=== PATIENT | male | born 1970 ===

== ENCOUNTER 2019-08-04 23:09 | Observation (INO) | payer OTHER ==
[~2019-08-04] VITALS: Ht 177.8 cm; Wt 91.3 kg
[~2019-08-04 23:09] MED LIST: ASPI81CH PO; NITR.4SL SL; OMEP20ER PO; SIMV40 PO
[2019-08-04 23:29] LABS: BASOPHILS ABSOLUTE AUTO 0.04 K/mm3 (0.00-0.23); BASOPHILS PERCENT AUTO 0 % (0-2); EOSINOPHILS ABSOLUTE AUTO 0.24 K/mm3 (0.00-0.68); EOSINOPHILS PERCENT AUTO 2 % (0-6); Hematocrit 44.9 % (37.0-53.0); Hemoglobin 14.9 g/dL (13.5-17.5); IMMATURE GRAN ABSOLUTE AUTO 0.04 K/mm3 (0.00-0.10); IMMATURE GRAN PERCENT AUTO 0 % (0-1); LYMPHOCYTES ABSOLUTE AUTO 4.92 K/mm3 (0.84-5.20); LYMPHOCYTES PERCENT AUTO 46 % (21-46); MONOCYTES ABSOLUTE AUTO 0.79 K/mm3 (0.16-1.47); MONOCYTES PERCENT AUTO 7 % (4-13); Mean Corpuscular HGB 29.7 pg (26.0-34.0); Mean Corpuscular HGB Conc 33.2 g/dL (31.5-36.5); Mean Corpuscular Volume 90 fL (80-100); Mean Platelet Volume 10.2 fL (9.1-12.4); NEUTROPHILS ABSOLUTE AUTO 4.73 K/mm3 (1.96-9.15); NEUTROPHILS PERCENT AUTO 44 % (41-73); Platelet Count 183 K/mm3 (150-400); RDW Coefficient Variation 12.3 % (11.7-14.2); RDW Standard Deviation 40.5 fL (35.1-46.3); Red Blood Cell Count 5.01 M/mm3 (4.30-5.90); White Blood Cell Count 10.76 K/mm3 (4.00-11.30)
[2019-08-04 23:48] LABS: Alanine Aminotransfer (ALT/SGP 74 U/L (12-78); Albumin, Blood 3.8 g/dL (3.4-5.0); Albumin/Globulin Ratio 0.9 (0.8-1.8); Alk Phos 57 U/L (50-136); Anion Gap 9 mmol/L (6-16); Aspartate Aminotrans (AST/SGOT 51 U/L (12-37); Bilirubin, Total 0.2 mg/dL (0.1-1.0); Blood Urea Nitrogen 16 mg/dL (8-24); Bun/Creatinine Ratio 21.2 (12.0-20.0); CO2, Blood 23 mmol/L (21-32); Calcium, Blood 8.3 mg/dL (8.5-10.1); Chloride, Blood 111 mmol/L (98-108); Creatinine, Blood 0.76 mg/dL (0.60-1.20); Globulin, Blood 4.1 g/dL (2.2-4.0); Glomerular Filtration Rate >60 (60-); Glucose, Blood 115 mg/dL (70-99); Potassium, Blood 3.7 mmol/L (3.5-5.5); Sodium, Blood 143 mmol/L (136-145); Total Protein, Blood 7.9 g/dL (6.4-8.2); Troponin I <0.015 ng/mL (0.000-0.040)
[2019-08-04 23:52] LABS: Ethanol (Alcohol), Blood, Med 399 mg/dL
[2019-08-05 00:14] LABS: Prolactin 55.7 ng/mL (2.5-17.4)
[2019-08-05 03:27] LABS: Magnesium, Blood 2.2 mg/dL (1.6-2.4)
[2019-08-05 03:29] LABS: Thyroid Stimulating Hormone 2.37 uIU/mL (0.360-4.800)
--- NOTE | 2019-08-05 09:05 | NUR ---
PT IS A&OX4 RESTING IN BED. PT DENIES ANY NAVA, CP, OR GENERAL DISCOMFORT. NO SEIZURE LIKE ACTIVITY REPORTED BY ROTARY SHEAR OPERATOR. AM CARE DONE. FAMILY REMAINS AT BEDSIDE. MRI PLANNED FOR APPROX 1 HOUR FROM NOW. MONITOR SHOWS PT TO BE SINUS ARACELI-SINUS RHYTHMN RATE HIGH 50'S-70'S. VITALS REMAIN STABLE.
--- NOTE | 2019-08-05 13:17 | NUR ---
CARE HANDOFF REPORT GIVEN TO CATHIE VILLA.
--- NOTE | 2019-08-05 14:12 | NUR ---
Assumed care from Ashlyn Hoover. Patient was getting EEG and is now done. Dr Novoa was notified and is typing in discharge instructions now. Patient denies any current needs VSS.
[2019-08-05] MEDS ORDERED: CHLO10 PO (14:35)
--- NOTE | 2019-08-05 14:58 | NUR ---
Patient was given written discharge instructions with family present, reveiwed current medications and new med and pulled LH IV intact and wrapped in coban. He was taken out in wheelchair to [facility].
== END 2019-08-05 15:06 | disposition home or self-care (01) ==
LOC: ER 23:09 → ICUW 23:10
PROVIDERS: Emergency Medicine; ADMIT Hospitalist
DX: F10.129 Alcohol abuse with intoxication, unspecified (principal); G92 Toxic encephalopathy; R56.9 Unspecified convulsions; R07.9 Chest pain, unspecified; E78.5 Hyperlipidemia, unspecified; K21.9 Gastro-esophageal reflux disease without esophagitis; Z79.82 Long term (current) use of aspirin; Z79.899 Other long term (current) drug therapy; Y90.8 Blood alcohol level of 240 mg/100 ml or more
CPT/HCPCS: 36415; 70450; 70551; 71045; 80053; 83605; 83735; 84146; 84443; 84484; 85025; 93005; 93010; 95819; 96361; 96372; 96374; 99285-25; A9270; G0378; G0480; J1650; J2405; J7030

== ENCOUNTER 2024-02-03 20:49 | Emergency (ER) | payer OTHER ==
[~2024-02-03] VITALS: Ht 172.7 cm; Wt 102.1 kg
[~2024-02-03 20:49] MED LIST changes: +CHLO10 PO
[2024-02-03] MEDS ORDERED: Diphth,Pertuss(Acell),Tet Vac 0.5 ML VIAL IM ONE ×2 (21:15→22:50)
[2024-02-03 22:29] VITALS: BP 144/84
[2024-02-03] MEDS ORDERED: HYDROcodone 5-APAP 325 TAB PO ONE (23:10)
== END 2024-02-04 00:35 | disposition home or self-care (01) ==
LOC: ER 20:49
DX: S01.112A Laceration without foreign body of left eyelid and periocular area, initial encounter (principal); M25.562 Pain in left knee; Y04.8XXA Assault by other bodily force, initial encounter; Z79.899 Other long term (current) drug therapy; Z79.82 Long term (current) use of aspirin; I10 Essential (primary) hypertension; E78.5 Hyperlipidemia, unspecified; K21.9 Gastro-esophageal reflux disease without esophagitis
CPT/HCPCS: 73562-LT; 90715; A9270

== ENCOUNTER → 2025-02-06 | Outpatient (CLI) | payer OTHER ==
[2025-02-06 17:14] LABS: BASOPHILS ABSOLUTE AUTO 0.02 K/mm3 (0.00-0.23); BASOPHILS PERCENT AUTO 0 % (0-2); EOSINOPHILS ABSOLUTE AUTO 0.23 K/mm3 (0.00-0.68); EOSINOPHILS PERCENT AUTO 4 % (0-6); Hematocrit 46.0 % (37.0-53.0); Hemoglobin 15.2 g/dL (13.5-17.5); IMMATURE GRAN ABSOLUTE AUTO 0.01 K/mm3 (0.00-0.10); IMMATURE GRAN PERCENT AUTO 0 % (0-1); LYMPHOCYTES ABSOLUTE AUTO 2.65 K/mm3 (0.84-5.20); LYMPHOCYTES PERCENT AUTO 41 % (21-46); MONOCYTES ABSOLUTE AUTO 0.59 K/mm3 (0.16-1.47); MONOCYTES PERCENT AUTO 9 % (4-13); Mean Corpuscular HGB Conc 33.0 g/dL (31.5-36.5); Mean Corpuscular Volume 87 fL (80-100); NEUTROPHILS ABSOLUTE AUTO 2.97 K/mm3 (1.96-9.15); NEUTROPHILS PERCENT AUTO 46 % (41-73); NRBC ABSOLUTE 0.00 K/mm3 (0.00-0.02); NRBC Auto 0.0 /100 WBC (0.0-0.2); Platelet Count 212 K/mm3 (150-400); RDW Coefficient Variation 13.1 % (11.7-14.2); RDW Standard Deviation 41.3 fL (35.1-46.3)
[2025-02-06 17:41] LABS: Alanine Aminotransfer (ALT/SGP 88.0 U/L (12-78); Albumin, Blood 4.1 g/dL (3.4-5.0); Albumin/Globulin Ratio 1.0 (0.8-1.8); Anion Gap 13.0 mmol/L (3-11); Aspartate Aminotrans (AST/SGOT 46.0 U/L (12-37); Bilirubin, Total 0.4 mg/dL (0.1-1.0); Blood Urea Nitrogen 15.0 mg/dL (8-24); CO2, Blood 28.0 mmol/L (21-32); Calcium, Blood 9.2 mg/dL (8.5-10.1); Chloride, Blood 103.0 mmol/L (98-108); Creatinine, Blood 0.9 mg/dL (0.60-1.20); Globulin, Blood 4.0 g/dL (2.2-4.0); Glucose, Blood 108.0 mg/dL (70-99); Potassium, Blood 4.0 mmol/L (3.5-5.5); Sodium, Blood 140.0 mmol/L (136-145); Total Protein, Blood 8.1 g/dL (6.4-8.2)
== END ==
LOC: LAB SHORT 17:10 → LAB 17:10
PROVIDERS: Emergency Medicine
DX: R07.9 Chest pain, unspecified (principal)
CPT/HCPCS: 80053; 83880; 84484; 85025; 85379